=== PATIENT | female | born 1945 | race Caucasian/White ===

== ENCOUNTER → 2017-01-19 | Day surgery (SDC) | payer BC, MEDICARE ==
[~2017-01-19] MED LIST: ACETAMINOPHEN325 MG PO; ALPRAZOLAM0.25 MG PO; ALPRAZOLAM0.5 MG PO; AMBIEN PO; ASPIRIN PO; ASPIRIN81 M1 PO; ASPIRIN81 MG PO; ATIVAN PO; ATORVASTATIN CA20 MG PO; BENZONATATE PO; CARAFATE1 GM PO; CARVEDILOL25 MG PO; CEFDINIR300 M1 PO; CEFEPIME-D2 GM/50 ML IV; CIPRO PO; COREG CR80 MG PO; COREG PO; COREG3.125 MG PO; CYANOCOBAL1000 MCG/M INJ; CYANOCOBAL1000 MCG/M SUBQ; DAKIN'S MODIF1000 ML EXT; DICYCLOMINE HCL20 MG PO; DOC-Q-LACE100 MG PO; DOCUSATE SODIU100 MG PO; DULCOLAX5 MG PO; DURAGESIC; EFFEXOR PO; EFFEXOR XR PO; EFFEXOR37.5 MG PO; ESCITALOPRAM OX10 MG PO; FLEXERIL PO; FLONASE ALLERG9.9 ML; FLUCONAZOLE100 MG PO; FOLIC ACID PO; FUROSEMIDE40 MG PO; GABAPENTIN300 MG PO; GUAIFENESIN W/C10 ML PO; HYDROCODON-ACE1 EAC7 PO; IMDUR-ER30 MG PO; K-DUR20 ME1 PO; KLOR-CON PO; LAMICTAL; LANSOPRAZOLE30 M2 PO; LANSOPRAZOLE30 MG PO; LASIX PO; LEVAQUIN PO; LEVOXYL50 MC1 PO; LORTAB 101 TAB 10/5 DOB; LORTAB 5-325 M1 EACH PO; LORTAB 7.51 TAB 7.5/ PO; LYRICA PO; LYRICA75 MG PO; MACROBID100 M1 PO; MAG-OX 400400 MG PO; METHADONE; METHADONE PO; METRONIDAZOLE250 MG PO; NEURONTIN PO; NEURONTIN300 MG PO; NIASPAN PO; NYSTATIN15 G1 TP; PERCOCET 5-3251 TAB PO; PERCOCET5/325 PO; PHENERGAN PO; PHENERGAN25 M1 PO; PHENERGAN25 MG PO; POTASSIUM CHLO10 MEQ PO; PREVACID PO; PRILOSEC PO; PROTONIX PO; RECLAST 55 MG/100 M IV; REGLAN PO; ROBAXIN500 MG PO; SENNOSIDES-DOC1 EACH PO; SEROQUEL PO; SYNTHROID PO; SYNTHROID0.05 MG; TIZANIDINE HCL2 M1 PO; VENLAFAXINE H37.5 MG PO; VIBRAMYCIN100 M1 PO; VICODIN 5/500 T1 TAB PO; VITAMIN B-1000 MCG/1 INJ; VITAMIN B-121000 MC2 PO; VITAMIN D400 UNI2 PO; WALGREENS PHARMACY; ZANAFLEX4 M1 PO; ZELNORM
--- NOTE | ~2017-01-19 | OR ---
Unit #: [id number] #: [id number] Patient: SELVIN LEE [id number] [address] [place], [place] [address] [id number] MR#: [id number] NAME: SELVIN LEE ROOM: Date of Procedure: 01/19/2017 Admission Date: 01/19/2017 Surgeon: Niko Montemayor Jr., M.D. : 1945 Attending Physician: Niko Montemayor Jr., M.D. Primary Care Physician: Generic Doctor Not In System OPERATIVE REPORT INDICATION FOR PROCEDURE The patient is a 71-year-old white female, who recently presented to the office complaining of nausea, vomiting, and mid epigastric abdominal pain. She has had a known past history for partial gastrectomy and it was felt that she needed upper endoscopy. She is brought into the endoscopy suite at this time for upper endoscopy. The patient understands the procedure including the risks, including that of perforation and bleeding, and consents. PREOPERATIVE DIAGNOSES Possible marginal ulcer, possible gastric ulcer disease. POSTOPERATIVE DIAGNOSES Retained food particles with probable gastroparesis, but no evidence of any ulcers and no significant esophagitis. ANESTHESIA MAC anesthesia. PROCEDURE PERFORMED Flexible fiberoptic esophagogastrojejunoscopy. DESCRIPTION OF PROCEDURE The patient was positioned in Ohng position with left side down. After being given MAC anesthesia, the Olympus XQ scope was passed through the proximal esophagus. The entire esophagus was examined. There was no evidence of any esophagitis. No evidence of any stenosis. There was some small amount of food particles in the distal esophagus. No evidence of any stenosis though. The scope was advanced through the GE junction into the cardia, where there was a small gastric pouch with a gastrojejunostomy present. There was no evidence of any gastric ulcer disease. The pouch was very small. The scope was advanced into the pouch, into the gastrojejunostomy and on down to the jejunum approximately 14 to 16 inches. There was no evidence of any marginal ulcers, no enteritis, no evidence of any stenosis and the anastomosis was widely patent. There was retained food particles in the gastric pouch though indicating gastroparesis or poor emptying. The scope was then slowly removed. The patient tolerated the procedure well and discharged in satisfactory condition. Dictated by... Unit #: [id number] #: [id number] Patient: SELVIN LEE BRANDO Montemayor Jr., M.D. JMB/tammy TD: 01/19/2017 15:26 JOB #: [id number] OPERATIVE REPORT Page 1 of 1 X Niko Montemayor MD X PROCEDURE OPERATIVE NOTE
== END | disposition home or self-care (01) ==
LOC: COPS 11:17
DX: T18.128A Food in esophagus causing other injury, initial encounter (principal); I25.2 Old myocardial infarction; I11.0 Hypertensive heart disease with heart failure; I50.9 Heart failure, unspecified; G43.909 Migraine, unspecified, not intractable, without status migrainosus; M19.90 Unspecified osteoarthritis, unspecified site; M81.0 Age-related osteoporosis without current pathological fracture; E66.01 Morbid (severe) obesity due to excess calories; E03.9 Hypothyroidism, unspecified; G89.29 Other chronic pain; E78.5 Hyperlipidemia, unspecified; Z68.39 Body mass index [BMI] 39.0-39.9, adult; Z86.73 Personal history of transient ischemic attack (TIA), and cerebral infarction without residual deficits; Z87.442 Personal history of urinary calculi; Z87.19 Personal history of other diseases of the digestive system; Z88.5 Allergy status to narcotic agent; Z88.8 Allergy status to other drugs, medicaments and biological substances; Z79.82 Long term (current) use of aspirin; Z79.899 Other long term (current) drug therapy; Z90.49 Acquired absence of other specified parts of digestive tract; Z98.49 Cataract extraction status, unspecified eye; Z98.51 Tubal ligation status; Z90.710 Acquired absence of both cervix and uterus; Z98.890 Other specified postprocedural states; X58.XXXA Exposure to other specified factors, initial encounter
CPT/HCPCS: J1642